=== PATIENT | male | born 1950 | race Caucasian/White ===

== ENCOUNTER → 2016-03-28 | Outpatient (CLI) | payer OTHER, BC ==
--- NOTE | 2016-03-28 10:14 | US ---
Sonography Limited to the Right Upper Quadrant of the Abdomen Clinical History: 65-year-old male with chronic viral hepatitis C. ICD-10 Diagnostic Code: B18.2. Technique: A curvilinear 5 MHz transducer was used to sonographically evaluate the right upper quadra nt of the abdomen. Color Doppler was also used. Comparison Study: None. Findings: There is some increased echogenicity associated with the visualized portions of the pancrea s, consistent with fatty infiltration. The pancreatic tail is obscured by bowel gas. The abdominal ao rta is normal in size, and tapers normally. The visualized IVC is normal in caliber. There is no asci genna or right pleural effusion. The hepatic vein trifurcation is normal, and the main portal vein is p atent. The liver measures 15.8 cm along the right midaxillary line, and there is mild diffuse increas ed echogenicity and a mildly coarsened echotexture, most consistent with steatosis. There is no discr ete hepatic mass. There is no intrahepatic or extrahepatic bile duct dilatation. The common bile duct measures 5.2 mm. The gallbladder is moderately distended, with no stones, sludge, wall thickening, p ericholecystic fluid, or sonographic Ponce sign. The gallbladder wall thickness is 1.7 mm. The right kidney is normal, measuring 10.8 x 5.2 x 5.4 cm. There is no hydronephrosis or perinephric fluid. Impression: Fatty infiltration of the pancreas and liver, with no focal hepatic mass or bile duct dil atation.
== END ==
LOC: CIMAGING 09:16
PROVIDERS: ATTEND Internal Medicine
DX: B18.2 Chronic viral hepatitis C (principal)
CPT/HCPCS: 76705-PO